=== PATIENT | female | born 1965 | race Caucasian/White ===

== ENCOUNTER 2021-09-01 09:31 | Emergency (ER) | payer OTHER, MEDICAID ==
[~2021-09-01] VITALS: Ht 180.3 cm; Wt 74.8 kg
[2021-09-01 09:43] VITALS: BP_SYST 113
--- NOTE | 2021-09-01 09:49 | NUR ---
Pt triaged and in waiting room pending MD neri.
--- NOTE | 2021-09-01 09:49 | NUR ---
Pt here from home, walked in ambulatory stating she needs refill on Haldol and Vistaril. Initially denied having psychiatrist then stated she could not see her PMD (Prototypes) till 10/12. Alert and oriented. Steady gait when walking. Pending MD neri.
--- NOTE | 2021-09-01 10:00 | NUR ---
ER Dr. Omalley to waiting room to examine patient.
[2021-09-01] MEDS ORDERED: VIS25 PO ×2 (10:07→11:03)
--- NOTE | 2021-09-01 11:10 | NUR ---
Patient given written and verbal discharge instructions and verbalizes understanding. ER MD discussed with patient the results and treatment provided. Patient in stable condition. ID arm band removed. Rx of Vistaril given. Patient educated on pain management and to follow up with PMD. Pain scale 0/10. Opportunity for questions provided and answered. Medication side effect fact sheet provided.
== END 2021-09-01 11:11 | disposition home or self-care (01) ==
LOC: SED 09:31
DX: F99 Mental disorder, not otherwise specified (principal); Z76.0 Encounter for issue of repeat prescription
CPT/HCPCS: 99281; 99283